=== PATIENT | male | born 1990 | race Caucasian/White ===

== ENCOUNTER 2017-01-13 11:39 | Emergency (ER) | payer BC ==
[2017-01-13 13:46] VITALS: BP 131/83
--- NOTE | 2017-01-13 15:08 | UC ---
Throat Pain/Nasal Gene HPI - HPI Summary HPI Summary: Patient presents with sore throat and cough x 3 weeks. +odynophagia, + dysphagia. cough is non-productive. denies fevers, sweats or chills. denies ear pain. - History of Current Complaint Chief Complaint: UCRespiratory Stated Complaint: SORE THROAT Time Seen by Provider: 01/13/17 13:52 Hx Obtained From: Patient Onset/Duration: Sudden Onset Severity: Moderate Pain Intensity: 2 Pain Scale Used: 0-10 Numeric Cough: Nonproductive Associated Signs & Symptoms: Positive: Dysphagia - Epiglottits Risk Factors Epiglottis Risk Factors: Negative - Allergies/Home Medications Allergies/Adverse Reactions: Allergies Allergy/AdvReac Type Severity Reaction Status Date / Time No Known Allergies Allergy Verified 01/13/17 12:00 Home Medications: Home Medications Ibuprofen [Advil] 400 mg PO 01/13/17 [History] [id number] W/ APAP [Vicks Dayquil Severe Cold] 1 liq PO 01/13/17 [ History] [id number] [Vicks Nyquil Severe Cold] 1 liq PO 01/13/17 [ History] PMH/Surg Hx/FS Hx/Imm Hx Previously Healthy: Yes - Surgical History Surgical History: None - Family History Known Family History: Positive: Unknown - Social History Occupation: Employed Full-time Lives: With Family Alcohol Use: Occasionally Substance Use Type: None Smoking Status (MU): Never Smoked Tobacco Review of Systems Constitutional: Negative Skin: Negative Eyes: Negative ENT: Sore Throat Respiratory: Cough Cardiovascular: Negative Neurovascular: Negative Musculoskeletal: Negative Neurological: Negative All Other Systems Reviewed And Are Negative: Yes Physical Exam Triage Information Reviewed: Yes Appearance: Well-Appearing, No Pain Distress, Well-Nourished Vital Signs: Initial Vital Signs Temp 98.5 F 01/13/17 11:56 Pulse 89 01/13/17 11:56 Resp 18 01/13/17 11:56 BP 130/79 01/13/17 11:56 Pulse Ox 99 01/13/17 11:56 Vital Signs Reviewed: Yes Eye Exam: Normal Neck exam: Normal Neck: Positive: Supple, Nontender, No Lymphadenopathy Respiratory Exam: Normal Respiratory: Positive: Chest non-tender, Lungs clear Musculoskeletal Exam: Normal Musculoskeletal: Positive: Strength Intact Neurological Exam: Normal Neurological: Positive: Alert Psychological Exam: Normal Psychological: Positive: Normal Response To Family, Age Appropriate Behavior Skin Exam: Normal Throat Pain/Nasal Course/Dx - Course Course Of Treatment: Patient presents with sore throat and cough. Cough improves wtih nyquil and dayquil. Strep negative. Prednisone given 50mg once daily for 5 days - Differential Dx/Diagnosis Differential Diagnosis/HQI/PQRI: Otitis Media, Pharyngitis, URI Provider Diagnoses: Pharyngitis Discharge - Discharge Plan Condition: Stable Disposition: HOME Prescriptions: predniSONE TAB* [Deltasone TAB*] 50 mg PO DAILY #5 tab MDD 1 Patient Education Materials: Pharyngitis (ED) Referrals: No Primary Care Phys,NOPCP [Primary Care Provider] - Additional Instructions: Cepacol throat lozenges Prednisone every morning for 5 days Tylenol for discomfort
== END 2017-01-13 14:29 | disposition home or self-care (01) ==
LOC: UCEAST 11:39
DX: J02.9 Acute pharyngitis, unspecified (principal)
CPT/HCPCS: 87651; 99202; G0463